=== PATIENT | male | born 1955 | race Two or more races ===

== ENCOUNTER 2025-07-03 20:46 | Emergency (ER) | payer MEDICARE, MEDICAID, SELFPAY ==
[2025-07-03 20:48] VITALS: BMI 28.4
[2025-07-03 21:07] VITALS: BP 164/81; PULSE 87; RESP 18; TEMP 37.2; O2SAT 96
[2025-07-03 21:14] LABS: Collection Type, Urine Clean Catch
--- NOTE | 2025-07-03 21:14 | PD.EDMALE ---
ED Male Genitalurinary RME/HPI General Chief complaint: Urogenital-Male Stated complaint: PAINFULL AND FREQUENT URINATION Time Seen by Provider: 07/03/25 21:14 Arrival date/time: 07/03/25 20:46 69M with history of DM and BPH presents to ED with several days of dysuria and increased urinary frequency. Patient denies N/V and back pain. Limitations: no limitations Related Data Previous Rx's ?Medication ?Instructions ?Recorded cefuroxime axetil 500 mg tablet 500 mg PO BID 7 days #14 tabs 07/03/25 Allergies Allergy/AdvReac Type Severity Reaction Status Date / Time No Known Allergies Allergy Verified 07/03/25 21:00 Review of Systems Review of Systems Systems Reviewed: All systems reviewed, normal except as documented Genitourinary Genitourinary: Reports as per HPI, Reports dysuria and Reports urinary frequency Past Medical History Social History SMOKING STATUS: Current every day smoker ED Exam General Limitations: Present no limitations General appearance: Present alert and in no apparent distress Head Head exam: Present atraumatic Neck Neck exam: Present normal inspection, full ROM and trachea midline Chest Chest inspection: Present normal inspection and symmetric chest wall rise Back Exam Back exam: Present normal inspection and full ROM Psychiatric Psychiatric exam: Present normal affect and normal mood Skin Skin exam: Present warm, dry, intact and normal color Course Quality Measures none Orders Category Date Time Status Drug Screen,Urine Stat Lab 07/03/25 21:07 Completed Urinalysis, C/S if Indicated Stat Lab 07/03/25 21:07 Completed Urine Culture Stat Lab 07/03/25 21:07 Received cefTRIAXone [Rocephin] 1,000 mg Med 07/03/25 22:19 Ordered Lidocaine 1% Pf Vial 5ml [Xylocaine 1% Pf 5 ml] 2.1 ml IM X1 Vital Signs Vital signs: Vital Signs Temperature 99 F 07/03/25 21:07 Pulse Rate 87 07/03/25 21:07 Respiratory Rate 18 07/03/25 21:07 Blood Pressure 164/81 H 07/03/25 21:07 Pulse Oximetry (%) 96 07/03/25 21:07 Oxygen Delivery Method Room Air 07/03/25 21:07 O2 at 96% on RA and WNLs Urogenital - Male MDM Narrative MDM Narrative:: 69M with history of DM and BPH presents to ED with several days of dysuria and increased urinary frequency. Patient denies N/V and back pain. Physical exam reveals no CVA tenderness. Paitent is afebrile, calm, and alert. Patient does not want a Duenas cath. UA suggests UTI. Meds and career technical counselor given. Patient data External records reviewed:: None Clinical information provided by:: patient Social determinants that could affect healthcare access:: none Patient has the following chronic illnesses:: DM and BPH How is presenting disease/condition affected by chronic disease/condition?: exacerbated by Evaluation data The following diagnostics were reviewed and interpreted by me:: lab results Lab and/or radiology exams considered but not ordered:: ordered Interpretation Summary: above Medications / Prescriptions Medications or Prescriptions considered but not ordered:: ordered Medication administrations:: Medication Administration History Ceftriaxone Sodium 1,000 mg/ (Lidocaine HCl 2.1 ml) 0 mg IM X1 ONE Stop: 07/03/25 22:20 above Consultations Consultation(s) initiated? (list below): No Diagnosis Urogenital Male Differential Diagnosis: urinary tract infection, priapism, urethritis, epididymitis, genital herpes simplex, prostatitis, acute retention of urine and inguinal hernia Most likely diagnosis given after review of the tests above:: UTI Admission Indicated Admission indicated?: not indicated Admission Request Was there a request for admission?: No Disposition Plan Disposition Plan: Discharge Discharge Attestation Discharge Attestation: The patient and all family members were given an opportunity to ask questions and understood the discharge instructions. Discharge instructions specifically effects, indications for sooner follow up or return to the emergency department, and the expected course of current diagnosis. Patient condition: Stable Discharge Plan Plan Patient Disposition: HOME (Self Care) Discharge Disposition comment: Stable Prescriptions/Referrals Prescriptions/Med Rec: New cefuroxime axetil 500 mg tablet 500 mg PO BID 7 Days Qty: 14 0RF Referrals: No Primary/Family,Physician [Primary Care Provider] - In 1 week Problem List Clinical Impression: Urinary tract infection Patient/Caregiver Discharge Instructions Education Materials: ED Bladder Infection, Male (Adult) Additional Instructions: Please follow-up with PCP within 24-48 hours and return immediately if symptoms worsen. Ibuprofen/Tylenol can be used simultaneously for greater fever/pain control. Print Language: Divehi Stand Alone Forms: Patient Portal Info Letter MEENA/MARKO Supervising Physician CRISTINA Supervising Physician: Dr. Rothman
[2025-07-03 21:22] LABS: Amphetamine/Methamp Scrn,U Negative (Negative); Barbiturate Screen,Urine Negative (Negative); Benzodiazepines Screen,Urine Negative (Negative); Benzoylecgonine Screen, Ur Negative (Negative); Fentanyl Screen,Urine Negative (Negative); Opiate Screen,Urine Negative (Negative); THC Screen,Urine Negative (Negative)
[2025-07-03 21:25] LABS: Bilirubin,Urine Negative (Negative); Blood,Urine 3+ (Negative); Clarity,Urine Turbid (Clear/Hazy); Color,Urine Colorless (Lt Yel-Yel); Glucose, Urine Negative (Negative); Ketones,Urine Negative (Negative); Leukocyte Esterase,Urine Positive (Negative); Nitrite,Urine Negative (Negative); PH,Urine 6.0 (5.0-7.0); Protein,Urine Trace (Neg - Trace); Specific Gravity,Urine 1.009 (1.001-1.035); Urobilinogen,Urine Negative mg/dL (0.0-1.0)
[2025-07-03 22:12] LABS: Bacteria,Urine Rare; Culture Indicated,Urine Yes; Mucus,Urine Rare /lpf; RBC,Urine 23 /hpf (0-3); Squamous Epithelial Cell,Urine 6 /hpf (0-5); WBC,Urine 235 /hpf (0-5)
== END 2025-07-03 22:38 | disposition home or self-care (01) ==
PROVIDERS: Physician Assistant; Emergency Provider Emergency Medicine
DX: N39.0 Urinary tract infection, site not specified (principal); N40.1 Benign prostatic hyperplasia with lower urinary tract symptoms; R35.0 Frequency of micturition
CPT/HCPCS: 80307; 81001; 87077; 87086; 87186; 96372; 99282; J0696; J3490